=== PATIENT | female | born 1995 ===

== ENCOUNTER → 2023-01-23 | Outpatient (CLI) | payer SELFPAY ==
[2023-01-23 18:06] LABS: Source, Urine Clean Catch
[2023-01-23 18:36] LABS: Bacteria Rare /hpf; Mucus Light (0-Heavy); Red Blood Cells, Urine 0-2 /hpf (0-2); Squamous Epithelial Cells Rare /hpf (Few); White Blood Cells, Urine 0-2 /hpf (0-5)
== END | disposition home or self-care (01) ==
LOC: LAB 14:52 → LAB SHORT 14:52
PROVIDERS: Advanced Practice Midwife
DX: Z34.81 Encounter for supervision of other normal pregnancy, first trimester (principal)
CPT/HCPCS: 81015; 87086